=== PATIENT | male | born 1980 | race Caucasian/White ===

== ENCOUNTER 2019-05-09 19:41 | Emergency (ER) | payer SELFPAY ==
[~2019-05-09] VITALS: Ht 165.1 cm; Wt 81.6 kg
[2019-05-09 19:55] VITALS: BP 121/73
--- NOTE | 2019-05-09 23:25 | NUR ---
PATIENT CALLED. NO RESPONSE
--- NOTE | 2019-05-09 23:30 | NUR ---
PT CALLED. NO RESPONSE.
--- NOTE | 2019-05-09 23:35 | NUR ---
PT CALLED. NO RESPONSE.
== END 2019-05-09 23:25 | disposition left against medical advice (07) ==
LOC: MED 19:41
DX: R21 Rash and other nonspecific skin eruption (principal); Z53.21 Procedure and treatment not carried out due to patient leaving prior to being seen by health care provider